=== PATIENT | male | born 1970 | race Caucasian/White ===

== ENCOUNTER 2024-12-03 15:46 | Inpatient (IN) | payer OTHER ==
[2024-12-03 16:26] VITALS: BMI 33.9
[2024-12-03] MEDS ORDERED: NICOTINE POLACRILEX 2 MG GUM BUC PRN (16:53)
[2024-12-03] MEDS ORDERED: NICOTINE POLACRILEX 2 MG LOZENGE BC PRN (16:53)
[2024-12-03] MEDS ORDERED: NALOXONE (NARCAN) HCL 4 MG/0.1 ML SPRAY NS PRN (16:53)
[2024-12-03] MEDS ORDERED: MAG HYDROX/AL HYDROX/SIMETH 30 ML UNIT-DOSE CUP PO PRN (16:53)
[2024-12-03] MEDS ORDERED: DICYCLOMINE HCL 10 MG CAPSULE PO PRN (16:53)
[2024-12-03] MEDS ORDERED: BENZONATATE 200 MG CAPSULE PO PRN (16:53)
[2024-12-03] MEDS ORDERED: POLYETHYLENE GLYCOL (HEALTHYLAX) 3350 17 GM PACKET PO PRN (16:53)
[2024-12-03] MEDS ORDERED: MAGNESIUM HYDROX 2400MG/30ML ORAL SUSPENSION 30 ML CUP PO PRN (16:53)
[2024-12-03] MEDS ORDERED: IBUPROFEN 600 MG TABLET (FP) PO ONE (19:15)
[2024-12-03] MEDS: IBUPROFEN 600 MG TABLET (FP) PO PRN (19:18)
[2024-12-03] MEDS: diazePAM 5 MG TABLET PO PRN (20:11)
[2024-12-03] MEDS: MELATONIN 5 MG TABLETS PO SCH (22:31)
[2024-12-03] MEDS: CARVEDILOL 3.125 MG TABLET (FP) PO SCH (22:32)
[2024-12-03] MEDS: TAMSULOSIN HCL 0.4 MG CAP PO SCH (22:32)
[2024-12-03] MEDS: METHOCARBAMOL 500 MG TABLET PO PRN (22:32)
[2024-12-03] MEDS: diazePAM 5 MG TABLET PO SCH (22:32)
[2024-12-03] MEDS: THIAMINE 100 MG TABLET PO SCH (22:32)
[2024-12-04] MEDS: ASPIRIN COATED 81 MG TABLET.EC PO SCH (10:34)
[2024-12-04] MEDS: SPIRONOLACTONE 25 MG TABLET PO SCH (10:34)
[2024-12-04] MEDS: PRENATAL VITAMINS W/ FOLIC ACID TABLET (FP) PO SCH (10:34)
[2024-12-04] MEDS ORDERED: methaDONE HCL 10 MG TABLET PO ONE (10:34)
[2024-12-04] MEDS: NICOTINE 7 MG/24 HOURS TOPICAL PATCH TD SCH (11:17)
[2024-12-04 11:39] LABS: HEMATOCRIT 40.2 % (40.1-51.0); HEMOGLOBIN 12.7 g/dL (13.7-17.5); MCHC 31.6 g/dl (32.3-36.5); MEAN CELL VOLUME 93.1 fl (79.0-92.2); MEAN PLT VOLUME 10.9 fl (9.4-12.4); PLATELET COUNT 232 x10^3/uL (163-337); RDW 12.9 % (12.2-16.1)
[2024-12-04 11:40] LABS: CHLORIDE 105 mmol/L (98-107); POTASSIUM 4.1 mmol/L (3.5-5.1); SODIUM 138 mmol/L (136-145)
[2024-12-04 11:48] LABS: SGOT/AST 19 U/L (15-37); SGPT/ALT 25 U/L (13-61)
[2024-12-04 11:49] LABS: ALBUMIN 3.2 g/dl (3.4-5.0); ANION GAP 8 mmol/L (4-13); BILIRUBIN,TOTAL 0.3 mg/dL (0.2-1); BLOOD UREA NITROGEN 13.4 mg/dL (7-18); CO2 25 mmol/L (21-32); GLUCOSE,RANDOM 193 mg/dL (74-106); TOT PROT 6.6 g/dl (6.4-8.2)
[2024-12-04 11:51] LABS: ALK PHOS 95 U/L (45-117); CALCIUM 9.2 mg/dL (8.5-10.1)
[2024-12-04 11:53] LABS: CREATININE 0.8 mg/dL (0.55-1.3)
[2024-12-04 12:42] LABS: HIV INTERPRETATION NEGATIVE (NEGATIVE)
[2024-12-04 12:55] LABS: HCV DIAGNOSTIC IN-HOUSE W/RFLX REACTIVE (NONREACTIVE)
[2024-12-04] MEDS: ACETAMINOPHEN 325 MG TABLET (FP) PO PRN (19:09)
[2024-12-04] MEDS: SUVOREXANT 10 MG TABLET PO PRN (22:28)
[2024-12-05] MEDS ORDERED: methaDONE HCL 10 MG TABLET PO SCH (06:00)
[2024-12-05] MEDS: diazePAM 5 MG TABLET PO SCH (06:18)
[2024-12-05] MEDS: LOPERAMIDE HCL 2 MG CAPSULE PO PRN (06:20)
[2024-12-05] MEDS: guaiFENesin 600 MG TABLET.ER (FP) PO PRN (11:26)
[2024-12-05] MEDS: BENZOCAINE/MENTHOL (CHLORASEPTIC ) LOZENGE MM PRN (11:27)
[2024-12-05] MEDS: ALBUTEROL SO4 HFA INHALER IH PRN ×2 (13:26→22:11)
[2024-12-06] MEDS: diazePAM 5 MG TABLET PO SCH (05:46)
[2024-12-06] MEDS: SPIRONOLACTONE 25 MG TABLET PO SCH (09:17)
[2024-12-06] MEDS: ONDANSETRON *ODT* 4 MG TABLET SL PRN (13:09)
[2024-12-06] MEDS: ACAMPROSATE CALCIUM 333 MG TABLET.DR PO SCH (13:09)
[2024-12-06] MEDS: BISMUTH SUBSALICYLATE 524 MG/30 ML PO PRN (21:48)
[2024-12-06] MEDS: INSULIN ASPART SLIDING SCALE (NOVOLOG) 1 VIAL SQ SCH (23:14)
[2024-12-07] MEDS: diazePAM 5 MG TABLET PO ONE (05:44)
[2024-12-07] MEDS: IBUPROFEN 400 MG TABLET (FP) PO PRN (07:20)
[2024-12-07 09:21] VITALS: BP 136/78; PULSE 85; RESP 18; TEMP 97.8
== END 2024-12-07 11:00 | disposition home or self-care (01) | DRG 773 ==
LOC: YASAS 15:46 → Y6N 18:38
PROVIDERS: ADMIT Allergy & Immunology; ATTEND Family Medicine Addiction Medicine
PROC: HZ2ZZZZ Detoxification Services for Substance Abuse Treatment (ICD-10-PCS; principal; 2024-12-03)
DX: F10.230 Alcohol dependence with withdrawal, uncomplicated (principal); F11.20 Opioid dependence, uncomplicated; F17.210 Nicotine dependence, cigarettes, uncomplicated; F41.9 Anxiety disorder, unspecified; I25.10 Atherosclerotic heart disease of native coronary artery without angina pectoris; I11.0 Hypertensive heart disease with heart failure; I50.9 Heart failure, unspecified; Z95.1 Presence of aortocoronary bypass graft; E11.9 Type 2 diabetes mellitus without complications; Z79.4 Long term (current) use of insulin; E78.5 Hyperlipidemia, unspecified; M16.11 Unilateral primary osteoarthritis, right hip; N40.0 Benign prostatic hyperplasia without lower urinary tract symptoms; Z56.0 Unemployment, unspecified; Z59.00 Homelessness unspecified
CPT/HCPCS: 36415; 80053; 80305; 80307; 82962; 85027; 86780; 86803; 87389; 87522; Q0162